=== PATIENT | female | born 1940 | race American Indian/Alaskan Native ===

== ENCOUNTER 2018-03-30 18:53 | Emergency (ER) | payer MEDICAID, MEDICARE ==
[2018-03-30 19:03] VITALS: O2SAT 100
--- NOTE | 2018-03-30 19:24 | C.PDOC ---
History Of Present Illness The patient is an 78 year old female whose PMHx includes Diabetes. Patient was at [employer] service earlier today, and suddenly experienced weakness and confusion while waiting for her ride. Patient's son assisted her into the car, and began heading to the ED. While en route, patient ate a sugar donut and was found to be at her baseline upon ED arrival. Patient's blood sugar level in ED triage was 171 mg/dL. Patient states she is unhappy to be in the ED and has no acute complaints at this time. She denies fever, chills, and numbness at this time. Time Seen by Provider: 03/30/18 19:07 Chief Complaint (Nursing): Weakness/Neurological Deficit History Per: Patient, Family (son ) History/Exam Limitations: no limitations Onset/Duration Of Symptoms: Hrs Current Symptoms Are (Timing): Gone Activity At Onset Of Symptoms: Standing Seizure Or Post-ictal Symptoms: None Fall Associated With With Symptoms: No Additional History Per: Patient, Family Past Medical History Reviewed: Historical Data, Nursing Documentation, Vital Signs Vital Signs: Last Vital Signs Temp 98 F 03/30/18 19:00 Pulse 91 H 03/30/18 19:00 Resp 18 03/30/18 19:00 BP 138/80 03/30/18 19:00 Pulse Ox 100 03/30/18 19:34 - Medical History PMH: Diabetes, HTN Surgical History: Coronary Stent - [facility] Procedures CONTR CEREBR ARTERIOGRAM (08/14/05) INSERT INDWELLING CATH (10/16/13) MAGNETIC RESONANCE IMAGING OF BRAIN AND BRAIN STEM (08/14/05) MRI OF OTHER AND UNSPECIFIED SITES (08/14/05) REPLACE INDWELLING CATH (12/09/13) Family History: States: Unknown Family Hx - Social History Hx Tobacco Use: No Hx Alcohol Use: No Hx Substance Use: No - Immunization History Hx Tetanus Toxoid Vaccination: No Hx Influenza Vaccination: No Hx Pneumococcal Vaccination: No Review Of Systems Constitutional: Negative for: Fever, Chills Neurological: Positive for: Weakness, Confusion. Negative for: Numbness Physical Exam - Physical Exam Appears: Non-toxic, No Acute Distress Skin: Normal Color, Warm, Dry Head: Atraumatic, Normacephalic Eye(s): bilateral: Normal Inspection Oral Mucosa: Moist Neck: Supple Chest: Symmetrical, No Deformity, No Tenderness Cardiovascular: Rhythm Regular, No Murmur Respiratory: Normal Breath Sounds, No Rales, No Rhonchi, No Wheezing Extremity: Normal ROM, Capillary Refill (less than 2 seconds ) Neurological/Psych: Oriented x3, Normal Speech, Normal Cognition, Normal Cranial Nerves (2-12 intact), Normal Motor (able to move bilateral upper and lower extremities ), Normal Sensation, Other ([id number] and fitg-sa-[id number] intact bilaterally, displays good glazier helper, able to perform serial sevens ) Gait: Steady ED Course And Treatment O2 Sat by Pulse Oximetry: 100 (on RA) Pulse Ox Interpretation: Normal Medical Decision Making Medical Decision Making: Impression: 78 year old female with transient hypoglycemia secondary to Diabetes Progress: Upon examination, patient is resting comfortably, showing no signs of distress and has no acute complaints at this time. Patient was able to ambulate to my satisfaction in the ED. Patient is stable for discharge and is advised to follow up with her PMD within 1-2 days for further evaluation and/or return to the ED if symptoms return or worsen. Disposition - Disposition Referrals: [facility] [Outside] Disposition: HOME/ ROUTINE Disposition Time: 19:22 Condition: GOOD Instructions: Low Blood Sugar in People With Diabetes Forms: [facility] (Guyanese) - Clinical Impression Clinical Impression: Hypoglycemia due to type 2 diabetes mellitus - Scribe Statement The provider has reviewed the documentation as recorded by the Scribe (Luz Aguilar) Provider Attestation: All medical record entries made by the Scribe were at my direction and personally dictated by me. I have reviewed the chart and agree that the record accurately reflects my personal performance of the history, physical exam, medical decision making, and the department course for this patient. I have also personally directed, reviewed, and agree with the discharge instructions and disposition.
[2018-03-30 19:36] VITALS: BP 129/81; PULSE 88; RESP 20; TEMP 98.2
== END 2018-03-30 19:36 | disposition home or self-care (01) ==
LOC: C.ER 18:53
DX: E11.649 Type 2 diabetes mellitus with hypoglycemia without coma (principal); I10 Essential (primary) hypertension

== ENCOUNTER 2018-04-10 16:31 | Emergency (ER) | payer MEDICARE ==
[2018-04-10 16:39] VITALS: TEMP 97.7
[2018-04-10 17:33] LABS: BASO # 0.1 K/uL (0.0-0.2); BASO % 0.8 % (0.0-2.0); EOS # 0.1 K/uL (0.0-0.7); EOS % 1.6 % (0.0-4.0); HEMOGLOBIN 11.9 g/dL (11.0-16.0); LYMPH # 2.1 K/uL (1.0-4.3); MEAN CELL VOLUME 88.1 fL (81.0-99.0); MEAN CORPUSCULAR HEMOGLOBIN 30.4 pg (27.0-31.0); MEAN CORPUSCULAR HGB CONC 34.5 g/dL (33.0-37.0); MEAN PLATELET VOLUME 9.7 fL (7.2-11.7); MONO # 0.6 K/uL (0.0-0.8); MONO % 6.6 % (0.0-10.0); NEUT # 5.5 K/uL (1.8-7.0); RBC 3.91 Mil/uL (3.80-5.20); RED CELL DISTRIBUTION WIDTH 14.8 % (11.5-14.5); WHITE BLOOD COUNT 8.4 K/uL (4.8-10.8)
[2018-04-10 17:41] LABS: CALCIUM 9.6 mg/dl (8.6-10.4)
[2018-04-10 17:52] LABS: TROPONIN I 0.016 ng/mL (0.00-0.120)
--- NOTE | 2018-04-10 17:57 | C.PDOC ---
History Of Present Illness Patient is an 78 y/o female who presents to the ED s/p mechanical fall. Patient states she tripped and fell outside without injury; when a local company refrigerated truck driver lifted her up , her right rib was in pain. Patient denies any LOC, head injury, abdominal pain , SOB, or CP. No other physical complaints at this time. - HPI Time Seen by Provider: 04/10/18 17:03 Chief Complaint (Nursing): Trauma History Per: Patient History/Exam Limitations: no limitations Onset/Duration Of Symptoms: Hrs Recent travel outside of the [place]: No - Fall Fall:Prior To Injury: Tripped Past Medical History Reviewed: Historical Data, Nursing Documentation, Vital Signs Vital Signs: Last Vital Signs Temp 97.7 F 04/10/18 16:39 Pulse 82 04/10/18 18:36 Resp 16 04/10/18 18:36 BP 161/82 H 04/10/18 18:36 Pulse Ox 98 04/10/18 18:49 - Medical History PMH: Diabetes, HTN Surgical History: Coronary Stent - [facility] Procedures CONTR CEREBR ARTERIOGRAM (08/14/05) INSERT INDWELLING CATH (10/16/13) MAGNETIC RESONANCE IMAGING OF BRAIN AND BRAIN STEM (08/14/05) MRI OF OTHER AND UNSPECIFIED SITES (08/14/05) REPLACE INDWELLING CATH (12/09/13) Family History: States: No Known Family Hx - Social History Hx Tobacco Use: No Hx Alcohol Use: No Hx Substance Use: No - Immunization History Hx Tetanus Toxoid Vaccination: No Hx Influenza Vaccination: No Hx Pneumococcal Vaccination: No Review Of Systems Cardiovascular: Negative for: Chest Pain, Palpitations Respiratory: Negative for: Shortness of Breath Gastrointestinal: Negative for: Abdominal Pain Musculoskeletal: Positive for: Other (right rib pain) Neurological: Negative for: Weakness, Numbness, Headache Physical Exam - Physical Exam Appears: Non-toxic, No Acute Distress Skin: Normal Color, Warm, Dry Head: Atraumatic, Normacephalic Oral Mucosa: Moist Chest: Symmetrical Cardiovascular: Rhythm Regular, No Murmur Respiratory: Normal Breath Sounds, No Rales, No Rhonchi, No Wheezing Gastrointestinal/Abdominal: Soft, Tenderness (tenderness to right lateral rib area) Extremity: Normal ROM (x4) Neurological/Psych: Oriented x3, Normal Speech, Normal Cognition ED Course And Treatment - Laboratory Results Result Diagrams: 04/10/18 17:25 04/10/18 17:25 ECG: Interpreted By Me, Viewed By Me Interpretation Of ECG: sinus arhythmia; left atrial enlargement, left axis deviation, poor R wave progression, T wave reversion 1aVL V5 and V6 Rate From EC (bpm) O2 Sat by Pulse Oximetry: 98 Pulse Ox Interpretation: Normal - Other Rad Ribs and Chest XR X-Ray: Interpreted by Me, Viewed By Me Interpretation: PROCEDURE: Radiographs of the Chest and Right Ribs. HISTORY: fall. COMPARISON: None available. TECHNIQUE: Frontal radiograph of the chest and multiple oblique radiographs of the right ribs were obtained. FINDINGS: RIGHT RIBS: No acute rib fracture or focal lesion visualized. There is diffuse bone demineralization. LUNGS: The lungs are hyperinflated and there is peribronchial thickening with chronic changes in both lungs. PLEURA: No pneumothorax or pleural fluid. CARDIOVASCULAR: Normal sized heart. No pulmonary vascular congestion. OTHER FINDINGS: None. IMPRESSION: No acute rib fracture. No pneumothorax. - CT Scan/US CT head Other Rad Studies (CT/US): Interpreted By Me, Read By Radiologist CT/US Interpretation: PROCEDURE: CT HEAD WITHOUT CONTRAST. HISTORY: fall. COMPARISON: None available. TECHNIQUE: Axial computed tomography images were obtained through the head/brain without intravenous contrast. Radiation dose: Total exam DLP = 812.66 mGy-cm. This CT exam was performed using one or more of the following dose reduction techniques: Automated exposure control, adjustment of the mA and/or kV according to patient size, and/or use of iterative reconstruction technique. FINDINGS: HEMORRHAGE: No intracranial hemorrhage. BRAIN: There are mild chronic microangiopathic changes. There is no mass, mass effect or abnormal extra-axial fluid collection. There are coarse atherosclerotic calcifications in the cavernous carotid arteries. VENTRICLES: There is moderate age-related global parenchymal volume loss and proportionate enlargement of the ventricles and cortical sulci. CALVARIUM: There is no calvarial fracture or extracranial soft tissue swelling. PARANASAL SINUSES: Predominantly clear. MASTOID AIR CELLS: Predominantly clear. OTHER FINDINGS: None. IMPRESSION: No acute intracranial abnormality. Mild chronic microangiopathic changes and moderate age-related global parenchymal volume loss. Progress Note: EKG, CT head, and ribs and chest XR ordered. Toradol and ultram administered. On re-eval, patient is resting comfortably without pain medication. Patient is able to stand and walk despite being unwilling to do so. Patient will be discharged home with rib contusion s/p fall and is instructed to follow up with PMD in 2 days. Disposition Counseled Patient/Family Regarding: Studies Performed, Diagnosis - Disposition Disposition: HOME/ ROUTINE Disposition Time: 18:36 Condition: STABLE Additional Instructions: follow up with your doctor in 2 days call to make an appointment continue your medications at home return to ER if symptoms worsens or progress Prescriptions: traMADol [Ultram] 50 mg PO TID PRN #12 tab PRN Reason: Pain, Moderate (4-7) Instructions: Preventing Falls in the Older Adult, Bruised Rib (DC) Forms: [facility] (Malawian), General Discharge Instructions - Clinical Impression Clinical Impression: Contusion, Fall - Scribe Statement The provider has reviewed the documentation as recorded by the Scribe Orin Love All medical record entries made by the Scribe were at my direction and personally dictated by me. I have reviewed the chart and agree that the record accurately reflects my personal performance of the history, physical exam, medical decision making, and the department course for this patient. I have also personally directed, reviewed, and agree with the discharge instructions and disposition.
--- NOTE | 2018-04-10 18:13 | RAD ---
PROCEDURE: Radiographs of the Chest and Right Ribs. HISTORY: fall COMPARISON: None available. TECHNIQUE: Frontal radiograph of the chest and multiple oblique radiographs of the right ribs were obtained. FINDINGS: RIGHT RIBS: No acute rib fracture or focal lesion visualized. There is diffuse bone demineralization. LUNGS: The lungs are hyperinflated and there is peribronchial thickening with chronic changes in both lungs. PLEURA: No pneumothorax or pleural fluid. CARDIOVASCULAR: Normal sized heart. No pulmonary vascular congestion. OTHER FINDINGS: None. IMPRESSION: No acute rib fracture. No pneumothorax.
[2018-04-10 18:36] VITALS: BP 161/82; PULSE 82; RESP 16
[2018-04-10 18:39] VITALS: O2SAT 98
--- NOTE | 2018-04-12 02:17 | CARD ---
APPROVED REPORT EKG Measurement Heart [id number] <Conclusion> Normal sinus rhythm with sinus arrhythmia Possible Left atrial enlargement Left axis deviation Left ventricular hypertrophy Anterior infarct, age undetermined T wave abnormality, consider lateral ischemia Abnormal ECG
== END 2018-04-10 19:25 | disposition home or self-care (01) ==
LOC: C.ER 16:31
DX: S20.211A Contusion of right front wall of thorax, initial encounter (principal); W01.0XXA Fall on same level from slipping, tripping and stumbling without subsequent striking against object, initial encounter; E11.9 Type 2 diabetes mellitus without complications; I10 Essential (primary) hypertension

== ENCOUNTER 2018-05-04 13:35 | Emergency (ER) | payer MEDICARE ==
[2018-05-04] MEDS ORDERED: Dextrose 50% SYRINGE Inj (50 ml) IV STA (13:55)
[2018-05-04] MEDS ORDERED: Dextrose 50% SYRINGE Inj (50 ml) ONE (13:56)
[2018-05-04 14:22] VITALS: BP 162/70; PULSE 80; RESP 20; TEMP 97.9; O2SAT 98
--- NOTE | 2018-05-04 14:33 | C.PDOC ---
History Of Present Illness 78 y/o F c PMHx DM on Januvia p/w general weakness, lightheadedness, clammy skin x 1 hour. Brought to ED by son who recognized she was hypoglycemic. Full HPI/ROS unobtainable due to patient's condition. Time Seen by Provider: 05/04/18 13:55 Chief Complaint (Nursing): Dizziness/Lightheaded Past Medical History Vital Signs: Last Vital Signs Temp 97.9 F 05/04/18 13:45 Pulse 80 05/04/18 13:45 Resp 20 05/04/18 13:45 BP 162/70 H 05/04/18 13:45 Pulse Ox 98 05/04/18 13:45 - Medical History PMH: Diabetes, HTN Surgical History: Coronary Stent - [facility] Procedures CONTR CEREBR ARTERIOGRAM (08/14/05) INSERT INDWELLING CATH (10/16/13) MAGNETIC RESONANCE IMAGING OF BRAIN AND BRAIN STEM (08/14/05) MRI OF OTHER AND UNSPECIFIED SITES (08/14/05) REPLACE INDWELLING CATH (12/09/13) Family History: States: Unknown Family Hx - Social History Hx Tobacco Use: No Hx Alcohol Use: No Hx Substance Use: No - Immunization History Hx Tetanus Toxoid Vaccination: No Hx Influenza Vaccination: No Hx Pneumococcal Vaccination: No Review Of Systems Review Of Systems: ROS cannot be obtained secondary to pt's inabilty to answer questions. Physical Exam - Physical Exam Additional Physical Exam Comments: (After D50 administration) Gen: NAD Head: NC/AT Eyes: PERRL ENT: MMM Neck: Supple Chest: No tenderness CV: Regular rate. Radial pulses 2+ Lungs: CTA b/l Abd: Soft, NT Back: No CVA tenderness Extremities: No swelling or tenderness Skin: No rash Neuro: Alert, no focal deficit ED Course And Treatment O2 Sat by Pulse Oximetry: 98 Medical Decision Making Medical Decision Making: FS on arrival 33, amp D50 given, patient returned to baseline, given meal. Going home with son who will be with her. They both state that she took her second dose of Januvia today but did not eat afterward due to errands they had to run. Disposition - Disposition Disposition: HOME/ ROUTINE Disposition Time: 14:32 Condition: STABLE Instructions: Low Blood Sugar, Adult (DC) - Clinical Impression Clinical Impression: Hypoglycemia
== END 2018-05-04 15:09 | disposition home or self-care (01) ==
LOC: C.ER 13:35
DX: E11.649 Type 2 diabetes mellitus with hypoglycemia without coma (principal); I10 Essential (primary) hypertension